=== PATIENT | female | born 2000 | race Caucasian/White ===

== ENCOUNTER 2024-11-08 06:32 | Outpatient (REF) | payer MEDICAID, SELFPAY ==
--- OUTSIDE RECORDS SUMMARY | 2024-11-08 06:35 | XMS_ITS | Encounter Summary ---
Author Organization [facility] Address [address] [place] [address] Phone Care Team Providers Care Acid Blower Name Role Phone Zain Lewis MD Primary Care Provider [phone] Encounter Details Date Type Department Care Team (Late st Contact Info) Description 11/03/2024 Transcribe Orders Virtual Department [address] [place] [address] Luana Taylor PA-C [address] [place] [phone] [email or web address] RUQ pain (Primary Dx) Social History Tobacco Use Types Packs/Day Years Used Date Smoking Tobacco: Never Smokeless Tobacco: Never Alcohol Use Standard Drinks/Week Comments Never 0 (1 standard drink = 0.6 oz pur e alcohol) Education Answer Date Recorded Are you interested in more education? Not on isis e 10/25/2022 Are you concerned about learning? Not on file 10/25/2022 No 10/25/2022 No 10/25/2022 Digital Access Answer Date Recorded No 11/16/2022 No 11/16/2022 No 11/16/2022 Reliable internet access at home? Not on file 11/16/2022 Device with a working camera? Not on file Intimate Partner Violence Answer Date R ecorded Are you denied basic needs s uch as food, clothing, or medical care? No 07/25/2023 In the past 12 months have y ou been in a relationship with a person who hurts, threatens, or tries to control you? No 07/25/2023 Are you denied basic needs s uch as food, clothing, or medical care? No 07/25/2023 In the past 12 months have y ou been in a relationship with a person who hurts, threatens, or tries to control you? No 07/25/2023 Comments No Sex and Gender Information Value Date Recorded Sex Assigned at Not on file Legal Sex Female 5:56 PM EST Gender Identity Not on file Sexual Orientation Not on file documented as of this encounter Plan of Treatment Not on file documented as of this encounter Visit Diagnoses Diagnosis RUQ pain- Primary Abdominal pain, right upper quadrant documented in this encounter Care Teams Acid Blower Relationship Specialty Start Date End Date Zain Lewis MD [address] [place] [address] PCP - General Family Medicine 12/24/16 documented as of this encounter Additional Source Comments The information contained in this document represents components of the legal health record. It is not the complete legal health record.[facility]
--- OUTSIDE RECORDS SUMMARY | 2024-11-08 06:35 | XMS_ITS | Clinical Summary ---
Author Organization [facility] Address [address] [place] [address] Phone Care Team Providers Care Manager Internal Name Role Phone Zain Lewis MD Primary Care Provider [phone] Allergies No known active allergies Medications fluticasone propionate (FLONASE) 50 mcg/actuation nasal spray 1 spray by Nasal route daily. 9.9 mL 07/26/2023 Active fluconazole (DIFLUCAN) 150 MG tablet Take 1 tablet (150 mg total) by mouth once as needed (for signs/sympt oms of a yeast infection). 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 (08/12/2014): lumbar lordosis Scoliosis deformity of spine 05/22/2008 Overview (08/12/2014): Scoliosis Uncoded anteversion 05/22/2008 Overview (08/12/2014): anteversion Overweight 09/03/2007 Overview (08/12/2014): Overweight Encounters Date Type Department Care Team Description 11/07/2024 8:27 AM EDT - 11/07/2024 11:59 PM EDT Hospital Encounter [address] [place] [address] Luana Taylor PA-C Arrived Discharge Disposition: Home or Self Care 11/07/2024 Ancillary Orders Virtual Department [address] [place] [id number] Luana Taylor PA-C RUQ pain (Primary Dx) 11/03/2024 Transcribe Orders Virtual Department [address] [place] [id number] Luana Taylor PA-C RUQ pain (Primary Dx) from Last 3 Months Immunizations Immunization Administration Dates Next Due DTaP, unspecified formulation 07/29/2006 ,10/05/2003,2002,2002,2002 Hepatitis B, unspecified formulation 03/30/2003, 2002,2002 Hib, unspecified formulation 10/05/2003, 2002,2002,2002 MMR 10/05/2003 Pneumococcal conjugate, PCV 7 2002, 003,2002 Polio, Unspecified Formulation 02/22/2004,2002,2002 Varicella 07/04/2003 Social History Tobacco Use Types Packs/Day Years Used Date Smoking Tobacco: Never Smokeless Tobacco: Never Tobacco Cessation:Counseling Given: Not Answered Alcohol Use Standard Drinks/Week Comments Never 0 [...] on file Sexual Orientation Not on file Last Filed Vital Signs Vital Sign Reading Time Taken Comments Blood Pressure 125/75 07/26/2023 12:42 AM EST Pulse 88 07/26/2023 12:42 AM EST Temperature 36.1 ??C (96.9 ??F) 07/25/2023 11:[address] Respiratory Rate 18 07/26/2023 12:42 AM EST Oxygen Saturation 99% 07/26/2023 12:42 AM EST Inhaled Oxygen Concentration - - Weight 67.6 kg (149 lb) 05/12/2022 1:42 PM EST Height 162.6 cm (5' 4 ) 05/12/2022 1:42 PM EST Body Mass Index 25.58 05/12/2022 1:42 PM EST Plan of Treatment Health Maintenance Due Date Last Done Comments Adult Td,Tdap Booster 2002 DEPRESSION SCREENING 2014 SMOKING Hx and SMOKELESS TOBACCO SCREENING 2015 HPV VACCINES (1 - 3-dose series) 2017 MENINGOCOCCAL VACCINES (B) (1 of 2 - Standard) 2018 HEPATITIS C SCREENING 2020 HIV ONE-TIME SCREENING (18-65 YEARS) 2020 CHLAMYDIA SCREENING 05/12/2023 05/12/2022 PAP SMEAR 2023 COVID-19 VACCINE ( season) 2024 PNEUMOCOCCAL VACCINES (0-49 years) Aged Out 2002, 2002, 2002 No longer eligible based on patient's age to complete this topic HIB VACCINES Completed 10/05/2003, 02/2003, 2002, Additional history exists HEPATITIS A VACCINES Aged Out No long er eligible based on patient's age to complete this topic MENINGOCOCCAL VACCINES (ACWY) Aged Out No longer eligible based on patient's age to complete this topic Medical Devices Not on file Procedures Procedure Name Priority Date/Time Associated Diagnosis Comments US ABDOMEN LIMITED RIGHT UPPER QUADRANT Routine 11/07/2024 8:49 AM EDT RUQ pain CHLAMYDIA TRACHOMATIS, NEISSERIA GONORRHOEAE, AND TRICHOMONAS NUCLEIC ACID DETECTION Routine 05/12/2022 2:46 PM EST from Last 3 Months or Most Recently Relevant to Health Maintenance Results * US ABDOMEN LIMITED RIGHT UPPER QUADRANT (11/07/2024 8:49 AM EDT) Anatomical Region Laterality Modality Abdomen Ultrasound 11/07/2024 9:06 AM EDT Impressions 11/07/2024 9:20 AM EDT 1. ??No acute sonographic abnormalities identified on right upper quadrant ultrasound Narrative 11/07/2024 9:20 AM EDT US ABDOMEN LIMITED RIGHT UPPER QUADRANT Referring clinician's provided indication for this examination in [facility]: Outside Radiology Order; abdomen pain TECHNIQUE: US Abdominal limited right upper quadrant. COMPARISON: None FINDINGS: Liver: Normal. No focal lesions. Main Portal Vein: Patent with normal direction of flow. Gallbladder: Normal. No gallstones or gallbladder wall thickening. Guerrero's Sign: Negative. Biliary: Normal. No intrahepatic or extrahepatic biliary ductal dilatation. ?The common bile duct measures 2 mm. No ascites identified on the right upper quadrant ultrasound Procedure Note Davion Rea MD - 11/07/2024 US ABDOMEN LIMITED RIGHT UPPER QUADRANT Referring clinician's provided indication for this examination in [facility]:Outside Radiology Order; abdomen pain TECHNIQUE: US Abdominal limited right upper quadrant. COMPARISON: None FINDINGS: Liver: Normal. No focal lesions. Main Portal Vein: Patent with normal direction of flow. Gallbladder: Normal. No gallstones or gallbladder wall thickening. Guerrero's Sign: Negative. Biliary: Normal. No intrahepatic or extrahepatic biliary ductaldilatation. The common bile duct measures 2 mm. No ascites identified on the right upper quadrant ultrasound IMPRESSION: 1. No acute sonographic abnormalities identified on right upper quadrantultrasound us Luana Taylor PA-C IMG US ABDOMEN Final Re sult * Chlamydia Trachomatis, Neisseria Gonorrhoeae, and Trichomonas nucleic acid detection (05/12/2022 2:46 PM EST) Specimen Type [facility] C.TRACHOMATIS, AMP Negative Negative [facility] N.Gonorrhoeae, AMP Negative Negative [facility] SPECIMEN TYPE [facility] TRICHOMONAS AMP Negative Negative [facility] 05/12/2022 2:46 PM EST 05/12/2022 9:33 PM EST Екатерина German MD NON CULTURE MICROBIOLOGY Final Result [address] [phone] from Last 3 Months or Most Recently Relevant to Health Maintenance Insurance [facility] Care Teams Manager Internal Relationship Specialty Start Date End Date Zain [place] MD [address] [address] PCP - General Family Medicine 12/24/16 Additional Source Comments The information contained in this document represents components of the legal health record. It is not the complete legal health record.[facility]
--- OUTSIDE RECORDS SUMMARY | 2024-11-08 06:35 | XMS_ITS | Encounter Summary ---
Author Organization [facility] Address [address] [place] [address] Phone Care Team Providers Care Chief Wharfinger Name Role Phone Zain [place] MD Primary Care Provider [phone] Encounter Details Date Type Department Care Team (Late st Contact Info) Description 11/07/2024 Ancillary Orders Virtual Department [address] [place] [address] Luana Taylor PA-C [address] [place] [phone] [email or web address] RUQ pain (Primary Dx) Social [...] on file documented as of this encounter Results * US ABDOMEN LIMITED RIGHT UPPER QUADRANT (11/07/2024 8:49 AM EDT) Anatomical Region Laterality Modality Abdomen Ultrasound 11/07/2024 9:06 AM EDT Impressions 11/07/2024 9:20 AM EDT 1. ??No acute sonographic abnormalities identified on right upper quadrant ultrasound Narrative 11/07/2024 9:20 AM EDT US ABDOMEN LIMITED RIGHT UPPER QUADRANT Referring clinician's provided indication for this examination in [facility]: Outside Radiology Order; abdomen pain TECHNIQUE: [...] clinician's provided indication for this examination in [facility]:Outside Radiology Order; abdomen pain TECHNIQUE: US [...] PA-C IMG US ABDOMEN Final Re sult documented in this encounter Visit Diagnoses Diagnosis RUQ pain Abdominal pain, right upper quadrant RUQ pain- Primary Abdominal pain, right upper quadrant documented in this encounter Care Teams Chief Wharfinger Relationship Specialty Start Date End Date Zain [place] MD [address] [place] [address] PCP - General Family Medicine 12/24/16 documented as of this encounter Additional Source Comments The information contained in this document represents components of the legal health record. It is not the complete legal health record.[facility]
--- OUTSIDE RECORDS SUMMARY | 2024-11-08 06:35 | XMS_ITS | Encounter Summary ---
Author Organization [facility] Address [email or web address] [place] [address] Phone Care Team Providers Care Litigation Counsel Name Role Phone Zain [place] MD Primary Care Provider [phone]- [phone] Encounter Details Date Type Department Care Team (Late st Contact Info) Description 11/07/2024 8:27 AM EDT - 11/07/2024 11:59 PM EDT Hospital Encounter [facility] - [address] [place] [address] Luana Taylor PA-C [address] [place] [phone] [email or web address] [email or web address] Discharge Disposition: Home or Self Care Social History Tobacco Use Types Packs/Day Years [...] on file documented as of this encounter Medications at Time of Discharge fluconazole (DIFLUCAN) 150 MG tablet Take 1 tablet (150 mg total) by mouth once as needed (for signs/symptom s of a yeast infection). 1 tablet 07/26/2023 fluticasone propionate (FLONASE) 50 mcg/actuation nasal spray 1 spray by Nasal route daily. 9.9 mL 07/26/2023 documented as of this encounter Plan of Treatment Not on file documented as of this encounter Procedures Procedure Name Priority Date/Time Associated Diagnosis Comments US ABDOMEN LIMITED RIGHT UPPER QUADRANT Routine 11/07/2024 8:49 AM EDT RUQ pain documented in this encounter Results * US ABDOMEN LIMITED RIGHT UPPER QUADRANT (11/07/2024 8:49 AM EDT) Anatomical Region Laterality Modality Abdomen Ultrasound 11/07/2024 9:06 AM EDT Impressions 11/07/2024 9:20 AM EDT 1. ??No acute sonographic abnormalities identified on right upper quadrant ultrasound Narrative 11/07/2024 9:20 AM EDT US ABDOMEN LIMITED RIGHT UPPER QUADRANT Referring clinician's provided indication for this examination in Epic: Outside Radiology Order; abdomen pain TECHNIQUE: US [...] clinician's provided indication for this examination in [facility]:Outside Radiology Order; abdomen pain TECHNIQUE: US Abdominal [...] RUQ pain Abdominal pain, right upper quadrant documented in this encounter Care Teams Litigation Counsel Relationship Specialty Start Date End Date Zain [place] MD [address] [place] [address] PCP - General Family Medicine 12/24/16 documented as of this encounter Additional Source Comments The information contained in this document represents components of the legal health record. It is not the complete legal health record.[facility]
== END 2024-11-08 06:33 | disposition home or self-care (01) ==
LOC: HO.UMASIMG 06:32
PROVIDERS: Visit Provider Physician Assistant
DX: Z13.89 Encounter for screening for other disorder (principal)